=== PATIENT | male | born 1970 | race Caucasian/White ===

== ENCOUNTER 2022-06-06 12:27 | Outpatient (CLI) | payer OTHER | END 2022-06-06 12:28 | disposition home or self-care (01) | LOC: CSHCT 12:27 | PROVIDERS: ATTEND Family Medicine | DX: E78.2 Mixed hyperlipidemia (principal) | CPT/HCPCS: 75571 ==

== ENCOUNTER 2022-11-19 08:12 | Outpatient (CLI) | payer BC | END 2022-11-19 08:13 | disposition home or self-care (01) | LOC: CSHCT 08:12 | PROVIDERS: ATTEND Urology | DX: N20.0 Calculus of kidney (principal) | CPT/HCPCS: 74176 ==